=== PATIENT | female | born 1950 | race Caucasian/White ===

== ENCOUNTER 2019-05-11 19:47 | Inpatient (IN) | payer OTHER ==
[~2019-05-11] VITALS: Ht 165.1 cm; Wt 63.5 kg
[~2019-05-11 19:47] MED LIST: ALBUTEROL2.5 MG/0.5 INH; AUGMENTIN 875-1 EACH PO; AUGMENTIN 875875 MG PO; CIPRO500 MG PO; FLAGYL500 MG PO; IBUPROFEN 400400 M2 PO; LEVAQUIN 500 M500 M2 PO; PERCOCET 7.5-31 EACH PO; PREDNISONE 10 M10 MG PO; PROBIOTIC1 EAC1 PO; PROTONIX40 M1 PO; TOBRAMYCIN SULFA5 M1 OPHTHALMIC; TYLENOL325 MG; VENTOLIN HFA 1818 GM INH; ZOFRAN ODT4 MG PO
[2019-05-11 19:54] VITALS: BP 123/78
[2019-05-11 20:22] LABS: ABSOLUTE BASOPHILS 0.1 thou/uL (0.0-0.2); ABSOLUTE LYMPHOCYTES 1.9 thou/uL (0.8-5.3); ABSOLUTE MONOCYTES 0.7 thou/uL (0.0-1.2); ABSOLUTE NEUTROPHILS 3.9 thou/uL (1.6-8.1); BASOPHILS 1.2 %; EOSINOPHILS 0.4 %; HEMATOCRIT 40.3 % (37.0-47.0); HEMOGLOBIN 13.1 gm/dL (12.0-15.0); LYMPHOCYTES 28.5 %; MCH 28.5 pg (26.0-34.0); MCHC 32.7 g/dL (28.0-37.0); MCV 87.2 fL (80.0-100.0); MONOCYTES 10.5 %; MPV 7.6 fl. (7.2-11.1); NUCLEATED RBCS 0 /100WBC; PLATELET COUNT* 309 thou/uL (150-400); POLYS 59.4 %; RBC 4.62 mil/uL (4.20-5.00); RDW-CV 14.7 % (10.5-14.5); WBC 6.6 thou/uL (4.0-11.0)
[2019-05-11 20:23] LABS: URINE BILIRUBIN 1+ (Negative); URINE BLOOD NEGATIVE (Negative); URINE CLARITY CLEAR; URINE COLOR YELLOW; URINE GLUCOSE-RANDOM NEGATIVE (Negative); URINE KETONES 1+ (Negative); URINE LEUKOCYTES-REFLEX NEGATIVE (Negative); URINE NITRITE-REFLEX NEGATIVE (Negative); URINE PROTEIN NEGATIVE (Negative); URINE UROBILINOGEN 0.2 E.U./dl (0.2-1.0)
[2019-05-11 20:24] LABS: ICTOTEST (BILI CONFIRMATORY) Negative (Negative)
[2019-05-11 20:26] LABS: INR 1.1; PROTIME 11.3 Seconds (9.20-11.50)
[2019-05-11 20:30] LABS: ANION GAP 8 mmol/L (7-16); BUN 10 mg/dL (7-18); CALCIUM 8.9 mg/dL (8.5-10.1); CHLORIDE 101 mmol/L (98-107); CO2 30 mmol/L (21-32); CREATININE 0.8 mg/dL (0.6-1.3); GLUCOSE 96 mg/dL (70-99); SODIUM 139 mmol/L (136-145)
[2019-05-11 20:34] LABS: ALBUMIN 3.3 g/dL (3.4-5.0); ALKALINE PHOSPHATASE 87 U/L (46-116); LIPASE 60 U/L (73-393); SGOT 17 U/L (15-37); SGPT 21 U/L (30-65); TOTAL BILIRUBIN 0.6 mg/dL (<0.1-1.0); TOTAL PROTEIN 7.1 g/dL (6.4-8.2); TROPONIN-I LEVEL <0.06 ng/mL (<0.06)
[2019-05-11 20:41] LABS: POTASSIUM 2.9 mmol/L (3.5-5.1)
--- NOTE | 2019-05-11 21:53 | NUR ---
PT REFUSES ANPAIN MEDICATION AT THIS TIME. REPORT TO CHRIS. Rodrigues
--- NOTE | 2019-05-11 21:56 | NUR ---
recieved report and assumed care of pt.
[2019-05-11 22:52] VITALS: BP 128/66
--- NOTE | 2019-05-11 22:52 | NUR ---
REPORT GIVEN TO STEPHANIE LOPEZ. PT BEING TRANSFERED TO ROOM 107.
[2019-05-12 00:15] VITALS: BP 138/75
--- NOTE | 2019-05-12 00:57 | NUR ---
PATIENT ADMITTED TO ROOM 107 FROM ER AT APPROXIMATELY 2315. VSS ON 2L. PATIENT ORIENTED TO ROOM AND POLICIES. ADMISSION ASSESSMENT CHARTED. IV IN RIGHT AC- NS @ 100ML/HR. PATIENT IS NPO. FALL EDUCATION GIVEN AND FALL AGREEMENT SIGNED. PATIENT VERBALIZED UNDERSTANDING. PATIENT INSTRUCTED TO USE CALL LIGHT WHEN NEEDING ASSISTANCE. HOURLY ROUNDS MADE. WILL CONTINUE WITH PLAN OF CARE AND NURSING TO MONITOR.
--- NOTE | 2019-05-12 06:10 | NUR ---
PATIENT ADMITTED FROM ER. ADMITTED HERE AT 2315. ASSESSMENT PERFORMED AND MEDS RECONCILED. PATIENT REPORTED PAIN 10/10 AT ADMISSION ON FLOOR. ADMINISTERED A ONE TIME DOSE OF .. 2 MG OF MORPHINE AND 4 MG ZOFRAN. PATIENT NPO AT MIDNIGHT. PATIENT IS UP ADLIB AND RESTED THROUGHOUT EVENING.
[2019-05-12 07:40] VITALS: BP 101/60
--- NOTE | 2019-05-12 10:44 | NUR ---
SW met with pt to complete initial assessment, introduce self, and SW role. Pt alert, oriented. Pt continues to live home alone and is independent with ADLs and mobility. Pt has family in [place]. Pt has a supportive neighbor. Pt does not anticipate any dc needs at this time.
[2019-05-12 16:00] VITALS: BP 108/64
--- NOTE | 2019-05-12 16:46 | EKG ---
[place] [address] ELECTROCARDIOGRAM REPORT Name: MIS LITTLE Room: [address] ADM IN M.R.#: [id number] Admission: 05/11/19 Attend Phys: Yuniel Ward MD Discharge: Date of : 50 Report #: [id number] THIS REPORT FOR: //name// [facility] ED Test Date: 2019-05-11 Test Time: 20:07:12 Pat Name: MIS LITTLE Department: Room: [facility] Gender: F Airconditioning Engineer: TARIK : 1950 Requested By: Gautam Dill Order Number: [id number] MD: Alexei Cintron Measurements Intervals [place] Rate: 88 P: 78 MN: 158 QRS: 27 QRSD: 88 T: 35 QT: 367 QTc: 444 Interpretive Statements Sinus rhythm Compared to ECG 05/30/2015 21:24:38 No significant changes Electronically Signed On 05-12-2019 16:46:41 CDT by Alexei Cintron [email or web address] <ELECTRONICALLY SIGNED> By: Alexei Cintron MD, [facility] 05/12/19 1646 06 06 Alexei Cintron MD, [facility] /EPI
--- NOTE | 2019-05-12 17:53 | NUR ---
ASSUMED CARE OF PATIENT AT APPROX 0730. ALERT AND ORIENTED X4. ASSESSMENT COMPLETED AND CHARTED. VSS ON ROOM AIR. COMPLAINTS OF ABDOMINAL PAIN MANAGED WITH ORAL MEDICATION. FLUIDS INFUSED ORDERED. NO COMPLAINTS OF NAUSEA OR SOA. PATIENT UP AD PETE IN THE ROOM. HOURLY ROUNDS COMPLETED. CALL LIGHT WITHIN REACH. WILL CONTINUE TO MONITOR.
[2019-05-12 23:39] VITALS: BP 95/65
--- NOTE | 2019-05-13 06:13 | NUR ---
PATIENT IV WAS INFILTRATED AT BEGINNING OF SHIFT. NEW IV STARTED IN LEFT AC. 2 DOSES OF PAIN MEDICATION OF OXYCODONE GIVEN DURING SHIFT. SHE REPORTED THAT THE EYES WERE THE SOURCE OF PAIN AND THEN AT 0600 PAIN WAS LOCATED IN BACK AND STOMACH. EYE DROPS ADMINISTERED FOR EYE PAIN RELIEF. SLEPT OFF AND ON THROUGH NIGHT. NO NEW INFORMATION ON NEW PLAN OF CARE
[2019-05-13 09:00] VITALS: BP 101/60
[2019-05-13 11:48] LABS: CREATININE 0.7 mg/dL (0.6-1.3); POTASSIUM 3.3 mmol/L (3.5-5.1)
[2019-05-13 16:50] VITALS: BP 112/73
--- NOTE | 2019-05-13 18:24 | NUR ---
PATIENT PLEASANT AND COOPERATIVE THRU SHIFT. ALERT AND ORIENTED. INDEP IN RM. IV FLUIDS INFUSING W/O DIFF. CATH SITE NOTED WNL. SEE MAR. PATIENT STATES PAIN IN RT EYE, REQUEST PAIN MEDICATION THIS AM AFTER EYE GTTS GIVEN. UP TO SHOWER TODAY. EDUCATED ON POC FOR TOMORROW W/ DR CORTES, PATIENT VERBALIZES UNDERSTANDING OF NPO AFTER MIDNIGHT AND SCHEDULED SURGERY AT 1530. PATIENT STATES AERO TXs ARE MAKING HER NAUSEOUS AND LEAVE A "FUNNY TASTE IN MY MOUTH". PATIENT EDUCATED TO RINSE AND SPIT AFTER EACH AERO TX. PATIENT STATES VERBALLY OF UNDERSTANDING. ~TJRN
[2019-05-13 19:51] VITALS: BP 120/71
--- NOTE | 2019-05-14 04:36 | NUR ---
PATIENT REQUESTED HER EYE DROPS TWICE. SECOND DOSE GIVEN 0430 AM. SHE REQUESTED OXYCODONE FOR PAIN IN HER LOWER ABDOMEN AT 0430. ABDOMEN WAS TENTDER TO THE TOUCH AND SOFT. SHE WAS ABLE TO REST THROUGH THE SHIFT. NO NEW INCREASE IN PAIN THROUGH THE SHIFT. SHE HAS BEEN NPO SINCE MIDNIGHT WITH THE EXCEPTION OF ONE SMALL SIP OF WATER TO TAKE A PAIN PILL.
[2019-05-14 04:40] LABS: ABSOLUTE EOSINOPHILS 0.2 thou/uL (0.0-0.7); ABSOLUTE LYMPHOCYTES 2.3 thou/uL (0.8-5.3); ABSOLUTE MONOCYTES 0.5 thou/uL (0.0-1.2); ABSOLUTE NEUTROPHILS 3.3 thou/uL (1.6-8.1); BASOPHILS 0.8 %; EOSINOPHILS 2.5 %; HEMATOCRIT 39.7 % (37.0-47.0); MCHC 32.7 g/dL (28.0-37.0); MCV 88.6 fL (80.0-100.0); MONOCYTES 7.7 %; MPV 8.3 fl. (7.2-11.1); NUCLEATED RBCS 0 /100WBC; PLATELET COUNT* 278 thou/uL (150-400); RBC 4.48 mil/uL (4.20-5.00); RDW-CV 14.9 % (10.5-14.5); WBC 6.3 thou/uL (4.0-11.0)
[2019-05-14 04:45] LABS: CREATININE 0.5 mg/dL (0.6-1.3)
[2019-05-14 04:54] LABS: POTASSIUM 4.3 mmol/L (3.5-5.1)
[2019-05-14 07:25] VITALS: BP 111/79
--- NOTE | 2019-05-14 14:40 | NUR ---
PATIENT ESCORTED FROM ROOM PER BED TO SURGERY W/ SURGERY STAFF. ~TJRN
[2019-05-14 18:25] VITALS: BP 132/82
--- NOTE | 2019-05-14 19:25 | NUR ---
PATIENT RETURNS TO ROOM PER BED FROM PACU. REPORT REC'D. JUARES CATH IN PLACE, CL LIGHT YELLOW URINE NOTED IN BAG. IV SL. O2 2L/NC, SAT 91%. ~TJRN
[2019-05-14 20:32] VITALS: BP 129/73
[2019-05-15 00:01] VITALS: BP 96/56
[2019-05-15 04:00] VITALS: BP 105/64
--- NOTE | 2019-05-15 04:40 | NUR ---
PT ALERT AND ORIENTED. FORGETFUL AT TIMES. VITALS STABLE RA. MEDS GIVEN ORDERED. PAIN MANAGED WITH 50MCG OF FENTANYL. JUARES IN PLACE, CLEAR YELLOW URINE DRAINED WITH NO BLOOD CLOTS. HOURLY ROUNDING COMPLETED. WILL CONTINUE TO MONITOR.
[2019-05-15 04:50] LABS: HEMATOCRIT 38.5 % (37.0-47.0); HEMOGLOBIN 12.6 gm/dL (12.0-15.0); MCH 28.5 pg (26.0-34.0); MCHC 32.6 g/dL (28.0-37.0); MCV 87.3 fL (80.0-100.0); MPV 8.2 fl. (7.2-11.1); RBC 4.42 mil/uL (4.20-5.00); RDW-CV 14.1 % (10.5-14.5); WBC 4.3 thou/uL (4.0-11.0)
[2019-05-15 04:57] LABS: CALCIUM 9.3 mg/dL (8.5-10.1); CREATININE 0.6 mg/dL (0.6-1.3); POTASSIUM 4.3 mmol/L (3.5-5.1)
[2019-05-15 07:40] VITALS: BP 103/57; BP 105/57
[2019-05-15] MEDS ORDERED: PERCOCET 7.5-31 EACH PO (12:27)
--- NOTE | 2019-05-15 13:19 | NUR ---
OK PER DR. FONSECA AND UROLOGY FOR PATIENT TO DISCHARGE TODAY. JUARES WAS DC'D PER UROLOGY ORDERS AND ORDERS RECEIVED TO BLADDER SCAN. PATIENT AGREEABLE TO JUARES BEING REMOVED, REMOVED AT 1240. PATIENT DID REFUSED TO DISCHARGE HOME STATING SHE WAS STILL HAVING PAIN. DR. FONSECA NOTIFIED AND OK TO HOLD DISCHARGE.
[2019-05-15 14:32] VITALS: BP 103/57
--- NOTE | 2019-05-15 14:41 | NUR ---
REPORT GIVEN TO JESSICA ROBLEDO TO ASSUME CARE. PATIENT ENCOURAGED TO DRINK FLUIDS, DR. FALK NOTIFIED OF URINE OUTPUT WHEN JUARES DC'D. IV REMAINS SL. FIRST DOSE OF PYRIDIUM GIVEN ORDERED. PRN PERCOCET GIVEN X 1 THIS SHIFT FOR ABD PAIN.
--- NOTE | 2019-05-15 15:58 | NUR ---
PT VOIDED. BLADDER SCAN POST VOID, 23 ML.
[2019-05-15] MEDS ORDERED: COLACE100 MG PO (16:07)
--- NOTE | 2019-05-15 17:09 | NUR ---
ASSUMED PT CARE AT 1500. PT A&Ox4. VITALS STABLE. IV PATENT. UP AD PETE. DENIED N/V. MILD PAIN, DENIED PAIN MEDS. POSSIBLE DC TOMORROW. CALL LIGHT WITHIN REACH. WILL CONTINUE TO MONITOR.
[2019-05-15 19:45] VITALS: BP 106/68
--- NOTE | 2019-05-16 06:36 | NUR ---
PATIENT SLEPT MOST OF THE NIGHT. PATIENT HAD NO COMPLAINTS OF PAIN. PATIENT STATES SHE HAS BEEN VOIDING FINE. PATIENT TOOK OUT HER IV THIS MORNING. PLAN IS FOR PATIENT TO GO HOME TODAY. WILL CONTINUE TO MONITOR.
[2019-05-16 09:38] VITALS: BP 126/78
--- NOTE | 2019-05-16 09:38 | NUR ---
REVIEWED NURSING STUDENTS CHARTING AND AGREE.
--- NOTE | 2019-05-16 11:33 | NUR ---
PT DISCHARGED AND LEFT UNIT WITH NURSING STAFF TO HOME AT 1116. NO IV. PT STABLE UPON DISCHARGE. PT DROVE SELF HERE, ABLE TO DRIVE HOME. PAPER SCRIPTS AND CARE NOTES GIVEN. PERSONAL BELONGINGS SENT WITH PT.
--- NOTE | 2019-05-17 17:48 | OP ---
[address] [address] OPERATIVE REPORT Name: PINAAMRGEMIS COURTNEY Room: [address]#: [id number] Admission: 05/11/19 Attend Phys: Yuniel Ward MD Discharge: 05/16/19 Date of : 50 Report #: [id number] THIS REPORT FOR: //name// CC: Wood Ward DATE OF SERVICE: 05/14/2019 PREOPERATIVE DIAGNOSIS: Bladder tumor. POSTOPERATIVE DIAGNOSIS: Bladder tumor. PROCEDURE: Cystoscopy with transurethral resection of medium size bladder tumor. SURGEON: Kumar Najera MD ANESTHESIA: General. ESTIMATED BLOOD LOSS: Minimal. DRAINS: 22-Ethiopian urethral catheter. SPECIMENS: Bladder tumor. COMPLICATIONS: None. INDICATIONS: This is a 69-year-old female admitted with abdominal pain and noted to have a mass-like density in her bladder on CT scan. Potential etiologies and options for management were discussed. She has decided to undergo cystoscopy with possible bladder biopsies, possible transurethral resection of bladder tumor. Risks of procedure were explained including, but not limited to, bleeding, infection, anesthesia, cardiopulmonary or vascular events, injuries to urethra, bladder, ureters, surrounding structures, recurrent tumor, possible need for further procedures. We discussed the importance of followup. Also discussed the risk of postoperative urinary pain and urinary retention. She voices clear understanding and wants to proceed. DESCRIPTION OF PROCEDURE: The patient was pretreated with IV Cipro. After induction of general anesthesia, she was positioned, prepped and draped in the lithotomy position. Time-out procedure was performed. Cystourethroscopy was performed with 30 and 70 degrees scopes. The urethra is normal. Systematic examination of the bladder revealed that the ureteral orifices were orthotopic. No blood was seen from either. A sessile-appearing mass was noted protruding into the bladder along the posterior wall and projecting up towards the dome. No other lesions were visible on systematic examination[place] [address] OPERATIVE REPORT Name: MIS LITTLE Room: [address] [place] ..#: [id number] Admission: 05/11/19 Attend Phys: Yuniel Ward MD Discharge: 05/16/19 Date of : 50 Report #: [id number] exchanged for a 24-Ethiopian resectoscope apparatus and transurethral resection of bladder tumor was performed with cutting current, resecting the sessile tumor with cutting current and using the coagulating current in a pinpoint fashion for hemostasis. The visible tumor was resected and was approximately 4 cm maximum diameter. The bladder was emptied and reexamined. There was no visible tumor remaining. Hemostasis was excellent. The bladder was left partially filled and the scope was removed. Lidocaine jelly was given per urethra. A 22-Ethiopian 3-way urethral catheter was placed and the balloon inflated with 10 mL of sterile water. Catheter was irrigated with a piston syringe and sterile water and the returning fluid was clear without any clots. The catheter irrigated easily. Prior to removing the scope, the bladder was examined and there were no remaining tumor fragments in the bladder. The irrigation port was capped and the catheter was connected to dependent drainage. Bimanual exam was performed and there were no palpable pelvic masses. The patient tolerated the procedure well and was taken to the recovery room in stable condition. Further management will depend on pathology results and her progress. <ELECTRONICALLY SIGNED> By: Kumar Najera MD 05/17/19 1748 1733 [id number] Najera MD /nt
--- NOTE | 2019-05-17 18:06 | PATH ---
[address] [address] PATHOLOGY RPT PROCEDURE Name: CLARICE LITTLE Room: [address] IN .R.#: [id number] Admission: 05/11/19 Date of : 50 Discharge: 05/16/19 Report #: [id number] Path Case #: [id number] [facility] Accession Number: [id number] . 01 Material submitted: . bladder - BLADDER TUMOR . 01 Clinical history: . Bladder tumor. . 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 (LESA:dave; 05/17/2019) QMS/05/17/2019 . 02 Electronically signed: . Brandon Guzman MD, Pathologist NPI- [id number] . 01 Gross description: . Received in formalin labeled "Clarice Little, bladder tumor" is a 3.0 x 2.7 x 0.8 cm aggregate of pink-juan irregular tissue fragments. The specimen is submitted entirely in cassettes A1-A2. [place] [place] SYC/SYC . 02 Pathologist provided ICD-10: N30.30 . 02 CPT . 941927 Specimen Comment: A courtesy copy of this report has been sent to Specimen Comment: [phone], , . Specimen Comment: Report sent to ,DR MULTANI / DR TIRADO Performed at: [address], [place], [place] [id number] MD Tyler Osborne MD Phone: [phone] Performed at: [address] [facility] [address] [place], [place] [id number] MD Brandon Guzman MD Phone: [phone]
== END 2019-05-16 11:16 | disposition home or self-care (01) | DRG 669 ==
LOC: M.ERS 19:47 → M.TBA-ER 21:50 → M.ORTHSURG 21:50
PROVIDERS: Family Medicine; Surgery; Urology; ADMIT Family Medicine
PROC: 0TBB8ZZ Excision of Bladder, Via Natural or Artificial Opening Endoscopic (ICD-10-PCS; principal; 2019-05-14)
DX: D49.4 Neoplasm of unspecified behavior of bladder (principal); K63.2 Fistula of intestine; E44.1 Mild protein-calorie malnutrition; F17.210 Nicotine dependence, cigarettes, uncomplicated; E87.6 Hypokalemia; J44.9 Chronic obstructive pulmonary disease, unspecified; Z68.23 Body mass index [BMI] 23.0-23.9, adult; Z79.2 Long term (current) use of antibiotics; Z79.899 Other long term (current) drug therapy; Z88.2 Allergy status to sulfonamides; Z88.8 Allergy status to other drugs, medicaments and biological substances

== ENCOUNTER 2019-05-20 09:38 | Inpatient (IN) | payer OTHER | END 2019-05-27 11:36 | disposition home or self-care (01) | DRG 392 | LOC: M.ERS 09:38 → M.TBA-ER 12:47 → M.ORTHSURG 14:18 | PROVIDERS: ADMIT Internal Medicine | DX: K57.32 Diverticulitis of large intestine without perforation or abscess without bleeding (principal); N32.1 Vesicointestinal fistula; N39.0 Urinary tract infection, site not specified; J44.9 Chronic obstructive pulmonary disease, unspecified; N32.9 Bladder disorder, unspecified; F03.90 Unspecified dementia, unspecified severity, without behavioral disturbance, psychotic disturbance, mood disturbance, and anxiety; H10.9 Unspecified conjunctivitis; Z79.899 Other long term (current) drug therapy; Z88.2 Allergy status to sulfonamides; Z88.8 Allergy status to other drugs, medicaments and biological substances; Z87.891 Personal history of nicotine dependence ==